=== PATIENT | female | born 1955 | race Caucasian/White ===

== ENCOUNTER → 2017-06-29 | Outpatient (CLI) | payer BC, OTHER ==
[2017-06-29 13:22] LABS: HEMOGLOBIN 13.5 g/dL (12.2-16.2); LYMPH # 0.8 K/mm3 (0.7-4.5)
[2017-06-29 13:52] LABS: BUN 22 mg/dL (7-18)
[2017-06-29 14:03] LABS: GFR (ESTIMATED) 50 ML/MIN (59-)
== END ==
LOC: CARL-LAB 08:52
PROVIDERS: Internal Medicine Gastroenterology
DX: K75.81 Nonalcoholic steatohepatitis (NASH) (principal); K76.9 Liver disease, unspecified